=== PATIENT | female | born 1960 | race Caucasian/White ===

== ENCOUNTER 2019-11-18 08:07 | Day surgery (SDC) | payer OTHER ==
[~2019-11-18] VITALS: Ht 167.6 cm; Wt 83.9 kg
[~2019-11-18 08:07] MED LIST: BENADRYL25 MG PO; MULTI VITAMIN1 EACH PO
--- NOTE | 2019-11-18 10:52 | NUR ---
11/18/19 1052 Crystal Krause 1046-PATIENT ARRIVED TO PACU ON 2L NC RR EVEN. PATIENT AWAKE VERY DROWSY DENIES PAIN OR NAUSEA. LAYING LEFT LATERAL. ABDOMEN SOFT. ENCOURAGED TO PASS GAS. IVF INFUSING
--- NOTE | 2019-11-19 09:11 | OR ---
[facility] [address], [place] [address] Signed DATE OF OPERATION: 11/18/2019 SURGEON: Bell Zuniga MD PREOPERATIVE DIAGNOSIS: Screening. POSTOPERATIVE DIAGNOSES: 1. Moderate sigmoid diverticulosis. 2. Prep colitis, left colon (40 cm). 3. 5 mm polyp at 20 cm. 4. 5 mm polyp at 10 cm. PROCEDURE: Colonoscopy with hot biopsy. ESTIMATED BLOOD LOSS: None. INDICATIONS: Melony is a 59-year-old female, who was asked to see me for her initial screening colonoscopy. She has no lower GI complaints. There is no family history of colon cancer or polyps. She told me her parents have gone for colonoscopy every 10 years and it seems to be all had been fine. Her twin brother now lives in [place] and to her knowledge, he is fine as well. In the office, I gave her a pamphlet on colonoscopy. We looked at that together along with the risks including, but not limited to gas bloating, crampy abdominal pain, bleeding, perforation requiring surgery, and missed diagnosis. We also reviewed the need for IV conscious sedation, she had expressed understanding and wished to proceed. DESCRIPTION OF PROCEDURE: Melony was taken into our endoscopy suite and placed in the left lateral decubitus position. She told us she was very nervous and also gets very sick with narcotics, particularly what she describes as hydrocodone. Consequently, we gave her 8 mg of Zofran and 6.25 mg of Phenergan before we started. In the end, her entire colonoscopy took 10 mg of Versed and 200 mcg of fentanyl to cover her case. A digital rectal exam had been done, this was unremarkable. The adult colonoscope had been introduced and advanced under direct visualization of camera. She does have moderate sigmoid diverticulosis with moderately tortuous sigmoid colon. It took some extra time and carefully maneuvering the scope to get through and then it opened up nicely into the Electronically Signed By: BELL ZUNIGA MD 11/19/19 0911 PATIENT NAME: MELONY PALMA OPERATIVE REPORT DATE OF : 62 REPORT #: [id number] PHYSICIAN: BELL ZUNIGA MD PCP: FRED GREGORIO PA-C REPORT IS CONFIDENTIAL AND NOT TO BE RELEASED WITHOUT AUTHORIZATION [facility] [address] [place], [place] [address] Signed left colon. After that, it went nicely into the cecum itself. Her prep was quite excellent. The scope was slowly withdrawn. We could easily see the appendiceal orifice and the ileocecal valve. We taken pictures throughout for photodocumentation. Back in her left colon, she had some classic patchy inflammatory changes consistent with her colon prep. We went and took a single biopsy at 40 cm. As we came back down to the sigmoid colon just above the rectosigmoid junction, we found small polyp and another one at the top of the rectum. Both were easily removed with the help of hot biopsy forceps. The scope had been retroflexed in the rectum and there was no additional pathology noted above the anal canal. After this, the gas was suctioned out and the colonoscope removed. Melony tolerated the procedure quite well. RECOMMENDATIONS: I will see Melony back in my office in 7 to 14 days to review her results. Bell Zuniga MD ALB/MODL /[id number] cc: MD Fred Pereira PA Copies: BELL ZUNIGA MD ~ Electronically Signed By: BELL ZUNIGA MD 11/19/19 0911 PATIENT NAME: MELONY PALMA CHITO OPERATIVE REPORT DATE OF : 62 REPORT #: [id number] PHYSICIAN: BELL ZUNIGA MD PCP: FRED GREGORIO PA-C REPORT IS CONFIDENTIAL AND NOT TO BE RELEASED WITHOUT AUTHORIZATION
--- NOTE | 2019-11-23 08:25 | PATH ---
[facility] [address], [place] [address] Signed SPECIMEN(S): A COLON POLYP AT 20 CM SPECIMEN(S): B COLON AT 40 CM SPECIMEN(S): C COLON POLYP AT 10 CM SPECIMEN SOURCE: A. COLON POLYP AT 20 CM B. COLON AT 40 CM C. COLON POLYP AT 10 CM CLINICAL HISTORY: Pre: Colon screening. Post: Colon and rectal polyps, diverticulosis. MICROSCOPIC DESCRIPTION: Histologic sections of all submitted blocks are examined by light microscopy. These findings, together with the gross examination, support the pathologic diagnosis. FINAL PATHOLOGIC DIAGNOSIS: A. Colon, polyp at 20 cm, polypectomy: - Tubular adenoma. - Negative for high-grade dysplasia or malignancy. B. Colon, 40 cm, biopsy: - Colonic mucosa with mucosal lymphoid aggregate. - Negative for dysplasia or malignancy. C. Colon, polyp at 10 cm, polypectomy: - Hyperplastic polyp. - Negative for dysplasia or malignancy. NAL:cml:C2NR GROSS DESCRIPTION: Three specimens are received in three containers, labeled "BG." A. The specimen, labeled "BG," and designated on the requisition "colon polypectomy, 20 cm," is received in formalin and consists of one fragment of pink-zafar tissue (0.4 x 0.2 x 0.2 cm). The specimen is submitted entirely in cassette (A1). B. The specimen, labeled "BG," and designated on the requisition "colon biopsy, 40 cm," is received in formalin and consists of one fragment of pink-zafar tissue (0.3 x 0.2 x 0.2 cm). The specimen is submitted entirely in cassette (B1). C. The specimen, labeled "BG," and designated on the requisition "colon polypectomy at 10 cm," is received in formalin and consists of one fragment of pink-zafar tissue (2.4 x 0.2 x 0.2 cm). The PATIENT NAME: DONNA PALMA PATHOLOGY DATE OF : 62 REPORT #: [id number] PHYSICIAN: SOFÍA LI PCP: FRED GREGORIO PA-C REPORT IS CONFIDENTIAL AND NOT TO BE RELEASED WITHOUT AUTHORIZATION [facility] [address], [place] [address] Signed specimen is submitted entirely in cassette (C1). AC (under the direct supervision of a pathologist) The Gross Description was prepared using a voice recognition system. The report was reviewed for accuracy; however, sound-alike word errors, addition and/or deletions may occur. If there is any question about this report, please contact Client Services. PERFORMING LABORATORY: The technical component was performed by [facility] [address] ([employer]in St[employer] Maker: Aylin Avila MD; CLIA# [id number]). Professional interpretation [facility], [address] [place], [place] [address] (CLIA# [id number]). Diagnostician: Ciera Duran MD Pathologist Electronically Signed 11/23/2019 Copies: ~ PATIENT NAME: DONNA PALMA PATHOLOGY DATE OF : 62 REPORT #: [id number] PHYSICIAN: SOFÍA PATHOLOGY PCP: FRED GREGORIO PA-C REPORT IS CONFIDENTIAL AND NOT TO BE RELEASED WITHOUT AUTHORIZATION
== END 2019-11-18 11:45 | disposition home or self-care (01) ==
LOC: OPS 08:07 → DS 08:07 → OPS 09:45 → DS 09:45 → OPS 11:45
PROVIDERS: Colon & Rectal Surgery
PROC: 0DBE8ZX Excision of Large Intestine, Via Natural or Artificial Opening Endoscopic, Diagnostic (ICD-10-PCS; 2019-11-18)
PROC: 0DBE8ZZ Excision of Large Intestine, Via Natural or Artificial Opening Endoscopic (ICD-10-PCS; principal; 2019-11-18 09:45)
DX: Z12.11 Encounter for screening for malignant neoplasm of colon (principal); D12.6 Benign neoplasm of colon, unspecified; K62.1 Rectal polyp; K57.30 Diverticulosis of large intestine without perforation or abscess without bleeding; Z79.899 Other long term (current) drug therapy; Z88.8 Allergy status to other drugs, medicaments and biological substances; Z88.5 Allergy status to narcotic agent; Z88.0 Allergy status to penicillin; Z88.2 Allergy status to sulfonamides
CPT/HCPCS: 99153; G0500; J2250; J2405; J2550; J3010; J7121

== ENCOUNTER 2020-11-28 13:37 | Emergency (ER) | payer OTHER ==
[~2020-11-28] VITALS: Ht 167.6 cm; Wt 83.9 kg
[2020-11-28] MEDS ORDERED: RIZATRIPTAN5 MG PO (16:18)
[2020-11-28] MEDS ORDERED: ONDANSETRON ODT8 MG PO (16:19)
[2020-11-28] MEDS ORDERED: FIBER500 MG PO (16:19)
== END 2020-11-28 19:35 | disposition home or self-care (01) ==
LOC: ED 13:37
DX: G43.909 Migraine, unspecified, not intractable, without status migrainosus (principal); Z87.891 Personal history of nicotine dependence; Z88.8 Allergy status to other drugs, medicaments and biological substances; Z88.5 Allergy status to narcotic agent; Z20.822 Contact with and (suspected) exposure to COVID-19; Z88.2 Allergy status to sulfonamides; Z88.1 Allergy status to other antibiotic agents; Z79.899 Other long term (current) drug therapy
CPT/HCPCS: 71045; 80053; 81001; 83690; 83735; 85025; 96374; 96375; 99283-25; J0780; J1100; J1200; J2405; J7030; U0003